=== PATIENT | female | born 1970 | race African-American/Black ===

== ENCOUNTER 2016-11-17 14:22 | Emergency (ER) | payer MEDICAID ==
[~2016-11-17] VITALS: Ht 160 cm; Wt 99.0 kg
[~2016-11-17 14:22] MED LIST: AMLO5TAB88
[2016-11-17 14:34] VITALS: BP 131/87
== END 2016-11-17 18:58 | disposition home or self-care (01) ==
LOC: ER 18:53
DX: M25.562 Pain in left knee (principal); F14.10 Cocaine abuse, uncomplicated; Z98.890 Other specified postprocedural states
CPT/HCPCS: 99281

== ENCOUNTER 2020-05-10 08:33 | Emergency (ER) | payer MEDICAID ==
[~2020-05-10] VITALS: Ht 160 cm; Wt 113.0 kg
[2020-05-10] MEDS ORDERED: KETOROLAC 30MG/ML VIAL IV STA (09:13)
[2020-05-10 09:28] LABS: BASOPHILS % 0.9 % (0.0-2.0); EOSINOPHILS % 2.2 % (0.0-5.0); HEMATOCRIT. 36.5 % (36.0-48.0); HEMOGLOBIN. 12.3 g/dL (12.0-16.0); LYMPHOCYTES % 36.9 % (20.0-50.0); MEAN CORPUSCULAR HEMOGLOBIN 28.7 pg (28.0-32.0); MEAN CORPUSCULAR VOLUME 85.3 fL (81.0-99.0); MEAN PLATELET VOLUME 7.1 fl (7.4-10.4); MONOCYTES % 5.4 % (2.0-8.0); NEUTROPHILS % 54.6 % (40.0-76.0); PLATELET 329 x1000/uL (130-400); RED BLOOD CELL COUNT 4.28 mill/uL (4.2-5.4); RED CELL DISTRIBUTION WIDTH 14.1 % (11.6-14.6)
[2020-05-10 09:31] LABS: CHLORIDE 107 mEq/L (98-107)
[2020-05-10 09:35] LABS: INR 0.9
[2020-05-10] MEDS ORDERED: MORPHINE SULFATE 4 MG/ML CPJ (NOT FOR IM USE) IV ONE (10:30)
[2020-05-10 10:39] LABS: CLARITY URINE CLEAR (CLEAR); COLOR URINE YELLOW (YELLOW); KETONES URINE NEGATIVE (NEGATIVE); LEUKOCYTE ESTERASE URINE TRACE (NEGATIVE); NITRITE URINE NEGATIVE (NEGATIVE); OCCULT BLOOD URINE 3+ (NEGATIVE); PROTEIN URINE NEGATIVE (NEGATIVE); UROBILINOGEN URINE 0.2 E.U./dL (0.2-1.0)
[2020-05-10 11:16] VITALS: BP 149/103
== END 2020-05-10 12:35 | disposition home or self-care (01) ==
LOC: ER 08:33
DX: M54.9 Dorsalgia, unspecified (principal); Z88.6 Allergy status to analgesic agent; Z98.890 Other specified postprocedural states
CPT/HCPCS: 36415; 72100; 80053; 81003; 83690; 85025; 85610; 93005; 96374; 96375; 99285; J1885; J2270

== ENCOUNTER 2021-04-16 11:52 | Inpatient (IN) | payer BC, MEDICAID ==
[~2021-04-16] VITALS: Ht 160 cm; Wt 105.9 kg
[2021-04-16] MEDS ORDERED: ACETAMINOPHEN 325MG TABLET PO ONE (12:45)
[2021-04-16] MEDS ORDERED: SODIUM CHLORIDE 0.9% 1,000 ML IV ONE (12:45)
[2021-04-16] MEDS ORDERED: MECLIZINE 25MG TABLET PO ONE (12:45)
[2021-04-16 13:25] LABS: BASOPHILS % 0.9 % (0.0-2.0); EOSINOPHILS % 0.8 % (0.0-5.0); HEMATOCRIT. 36.7 % (36.0-48.0); HEMOGLOBIN. 12.9 g/dL (12.0-16.0); MEAN CORPUSCULAR HEMOGLOBIN 29.7 pg (28.0-32.0); MEAN CORPUSCULAR VOLUME 84.7 fL (81.0-99.0); MEAN PLATELET VOLUME 7.2 fl (7.4-10.4); MONOCYTES % 5.4 % (2.0-8.0); NEUTROPHILS % 67.9 % (40.0-76.0); PLATELET 332 x1000/uL (130-400); RED BLOOD CELL COUNT 4.33 mill/uL (4.2-5.4); RED CELL DISTRIBUTION WIDTH 14.4 % (11.6-14.6)
[2021-04-16 13:32] LABS: CHLORIDE 105 mEq/L (98-107)
[2021-04-16 13:36] LABS: ETHANOL BLOOD < 10 mg/dL
[2021-04-16 13:48] LABS: *AMPHETAMINES SCREEN URINE NEGATIVE (NEGATIVE); *BARBITURATES SCREEN URINE NEGATIVE (NEGATIVE); *BENZODIAZEPINES SCREEN URINE NEGATIVE (NEGATIVE); *COCAINE SCREEN URINE NEGATIVE (NEGATIVE); CANNABINOID URINE SCREEN NEGATIVE (NEGATIVE); METHADONE URINE SCREEN NEGATIVE (NEGATIVE); OPIATES URINE SCREEN NEGATIVE (NEGATIVE); PHENCYCLIDINE URINE SCREEN NEGATIVE (NEGATIVE)
[2021-04-16] MEDS ORDERED: LORAZEPAM 2MG/ML CPJ IV ONE (15:15)
[2021-04-16] MEDS ORDERED: IOHEXOL-350 100 ML BOTTLE ONE (23:07)
[2021-04-17] MEDS ORDERED: MECLIZINE 25MG TABLET PO PRN (09:30)
[2021-04-17] MEDS ORDERED: ONDANSETRON HCL 4MG/2ML INJ IV PRN (09:30)
[2021-04-17 10:09] LABS: CLARITY URINE CLOUDY (CLEAR); COLOR URINE YELLOW (YELLOW); KETONES URINE NEGATIVE (NEGATIVE); LEUKOCYTE ESTERASE URINE NEGATIVE (NEGATIVE); NITRITE URINE NEGATIVE (NEGATIVE); OCCULT BLOOD URINE NEGATIVE (NEGATIVE); PH URINE 7.5 (4.5-8.0); PROTEIN URINE NEGATIVE (NEGATIVE); SPECIFIC GRAVITY URINE 1.017 (1.005-1.030)
[2021-04-17 12:00] VITALS: BP_SYST 130; BP_SYST 139; BP_DIAS 87; BP_DIAS 88
[2021-04-17] MEDS: ACETAMINOPHEN 325MG TABLET PO PRN (13:22)
[2021-04-17 15:24] VITALS: BP 139/88
[2021-04-17 16:00] VITALS: BP 128/83
[2021-04-17] MEDS ORDERED: IBUP-2029 MT (16:52)
[2021-04-17] MEDS ORDERED: METO-396 PO (16:53)
[2021-04-17] MEDS ORDERED: FAMO20VI IV (16:56)
[2021-04-17] MEDS ORDERED: METF500S7 PO (16:59)
[2021-04-17] MEDS ORDERED: ATOR20TA65 PO (17:01)
[2021-04-17] MEDS ORDERED: LOSA25TA26 PO (17:02)
[2021-04-17] MEDS ORDERED: MELO-106 PO (17:10)
[2021-04-17 20:00] VITALS: BP_SYST 120; BP_SYST 121; BP_SYST 139; BP_DIAS 71; BP_DIAS 75; BP_DIAS 89
[2021-04-17] MEDS ORDERED: DEXTROSE 50% WATER 50ML SYRINGE IV PRN (21:15)
[2021-04-17] MEDS: BLOOD SUGAR DIAGNOSTIC STRIP TEST SCH (21:27)
[2021-04-17] MEDS: ATORVASTATIN CALCIUM 40MG TABLET PO SCH (21:27)
[2021-04-17] MEDS: METOPROLOL TARTRATE 25MG TABLET PO SCH (21:28)
[2021-04-18] VITALS (8 sets, daily range): BP systolic 98–147; BP diastolic 55–93
[2021-04-18] MEDS: BLOOD SUGAR DIAGNOSTIC STRIP TEST SCH ×4 (06:35→21:35)
[2021-04-18] MEDS: INSULIN LISPRO 100 UNITS/ML SUBCUT SCH ×4 (07:50→21:00)
[2021-04-18] MEDS ORDERED: FAMOTIDINE 20MG TABLET PO SCH (09:00)
[2021-04-18] MEDS: METFORMIN HCL 500MG TABLET PO SCH ×2 (09:01→17:32)
[2021-04-18] MEDS: LOSARTAN POTASSIUM 25 MG TABLET PO SCH (09:02)
[2021-04-18] MEDS: METOPROLOL TARTRATE 25MG TABLET PO SCH ×2 (09:03→21:34)
[2021-04-18] MEDS: ACETAMINOPHEN 325MG TABLET PO PRN ×2 (09:05→21:40)
[2021-04-18] MEDS: ATORVASTATIN CALCIUM 40MG TABLET PO SCH (21:34)
[2021-04-18] MEDS: FAMOTIDINE 20MG TABLET PO SCH (21:34)
[2021-04-18] MEDS ORDERED: NALOXONE HCL 0.4MG/ML VIAL IV PRN (22:00)
[2021-04-18] MEDS ORDERED: MORPHINE SULFATE 2 MG/ML CPJ (NOT FOR IM USE) IV PRN (22:00)
[2021-04-19] VITALS: BP 99/57
[2021-04-19 04:00] VITALS: BP 91/49
[2021-04-19] MEDS: BLOOD SUGAR DIAGNOSTIC STRIP TEST SCH (06:50)
[2021-04-19] MEDS: INSULIN LISPRO 100 UNITS/ML SUBCUT SCH (07:50)
[2021-04-19 08:00] VITALS: BP 111/59
[2021-04-19] MEDS: METFORMIN HCL 500MG TABLET PO SCH (08:59)
[2021-04-19] MEDS: METOPROLOL TARTRATE 25MG TABLET PO SCH (08:59)
[2021-04-19] MEDS: FAMOTIDINE 20MG TABLET PO SCH (09:00)
[2021-04-19] MEDS: LOSARTAN POTASSIUM 25 MG TABLET PO SCH (09:00)
[2021-04-19] MEDS ORDERED: MECL-159 MT (10:11)
== END 2021-04-19 13:10 | disposition home or self-care (01) | DRG 48 ==
LOC: ER 11:52 → 6WST 04-17 09:12 → EDBEDREQTM 04-17 09:58 → EDBEDREQ 04-17 09:58 → ENRESERV 04-17 10:22
PROVIDERS: ADMIT Internal Medicine; ATTEND Internal Medicine
DX: G90.8 Other disorders of autonomic nervous system (principal); E44.1 Mild protein-calorie malnutrition; E11.9 Type 2 diabetes mellitus without complications; E78.5 Hyperlipidemia, unspecified; E78.00 Pure hypercholesterolemia, unspecified; E66.9 Obesity, unspecified; I10 Essential (primary) hypertension; Z98.891 History of uterine scar from previous surgery; Z68.41 Body mass index [BMI] 40.0-44.9, adult; Z88.5 Allergy status to narcotic agent; Z71.3 Dietary counseling and surveillance
CPT/HCPCS: 36415; 70496; 70498; 71045; 80053; 80305; 80320; 81003; 82962; 83036; 83880; 84443; 84484; 85025; 93005; 93306; 99285; J2060; J2270; J2405; J7030; J8597; Q9967; G0480

== ENCOUNTER 2021-09-11 07:48 | Emergency (ER) | payer MEDICAID ==
[~2021-09-11] VITALS: Ht 160 cm; Wt 100.0 kg
[~2021-09-11 07:48] MED LIST changes: -AMLO5TAB88; +ATOR20TA65 PO; +FAMO20VI IV; +IBUP-2029 MT; +LOSA25TA26 PO; +MECL-159 MT; +MELO-106 PO; +METF500S7 PO; +METO-396 PO
[2021-09-11 08:05] VITALS: BP 145/90
[2021-09-11] MEDS ORDERED: KETOROLAC 30MG/ML VIAL IV STA (08:16)
[2021-09-11] MEDS ORDERED: ONDANSETRON HCL 4MG/2ML INJ IV STA (08:16)
[2021-09-11 08:37] LABS: BASOPHILS % 0.6 % (0.0-2.0); EOSINOPHILS % 0.7 % (0.0-5.0); HEMATOCRIT. 36.6 % (36.0-48.0); HEMOGLOBIN. 12.3 g/dL (12.0-16.0); LYMPHOCYTES % 33.9 % (20.0-50.0); MEAN CORPUSCULAR HEMOGLOBIN 28.6 pg (28.0-32.0); MEAN CORPUSCULAR VOLUME 85.3 fL (81.0-99.0); MEAN PLATELET VOLUME 7.2 fl (7.4-10.4); MONOCYTES % 6.2 % (2.0-8.0); NEUTROPHILS % 58.6 % (40.0-76.0); PLATELET 344 x1000/uL (130-400); RED BLOOD CELL COUNT 4.29 mill/uL (4.2-5.4); RED CELL DISTRIBUTION WIDTH 13.5 % (11.6-14.6)
[2021-09-11 08:40] LABS: CHLORIDE 107 mEq/L (98-107)
[2021-09-11 09:12] LABS: CLARITY URINE CLEAR (CLEAR); COLOR URINE YELLOW (YELLOW); KETONES URINE NEGATIVE (NEGATIVE); LEUKOCYTE ESTERASE URINE 1+ (NEGATIVE); NITRITE URINE NEGATIVE (NEGATIVE); OCCULT BLOOD URINE 3+ (NEGATIVE); PH URINE 6.5 (4.5-8.0); PROTEIN URINE TRACE (NEGATIVE); SPECIFIC GRAVITY URINE 1.024 (1.005-1.030); UROBILINOGEN URINE 0.2 E.U./dL (0.2-1.0)
[2021-09-11] MEDS ORDERED: NITR100C PO (09:53)
[2021-09-11] MEDS ORDERED: TOPUD PO (09:53)
== END 2021-09-11 10:22 | disposition home or self-care (01) ==
LOC: ER 07:48
DX: N39.0 Urinary tract infection, site not specified (principal); E11.9 Type 2 diabetes mellitus without complications; I10 Essential (primary) hypertension; E78.00 Pure hypercholesterolemia, unspecified; Z88.5 Allergy status to narcotic agent; Z79.899 Other long term (current) drug therapy; Z98.890 Other specified postprocedural states
CPT/HCPCS: 36415; 80053; 81003; 83690; 85025; 93005; 96374; 96375; 99284; J1885; J2405

== ENCOUNTER 2021-10-12 07:53 | Emergency (ER) | payer MEDICAID ==
[~2021-10-12] VITALS: Ht 162.6 cm; Wt 120.0 kg
[~2021-10-12 07:53] MED LIST changes: +NITR100C PO; +TOPUD PO
[2021-10-12] MEDS ORDERED: IBUPROFEN 600MG TABLET PO STA (08:09)
[2021-10-12] MEDS ORDERED: KETOROLAC 60MG/2ML VIAL IM ONE (09:30)
[2021-10-12] MEDS ORDERED: IBUP-2029 MT (09:51)
[2021-10-12] MEDS ORDERED: CYCL10TA7 MT (09:51)
[2021-10-12 10:21] VITALS: BP 126/89
== END 2021-10-12 10:25 | disposition home or self-care (01) ==
LOC: ER 08:07
DX: S20.219A Contusion of unspecified front wall of thorax, initial encounter (principal); S30.1XXA Contusion of abdominal wall, initial encounter; E11.9 Type 2 diabetes mellitus without complications; E78.00 Pure hypercholesterolemia, unspecified; I10 Essential (primary) hypertension; Z88.5 Allergy status to narcotic agent; Z79.899 Other long term (current) drug therapy; Z98.890 Other specified postprocedural states; V49.40XA Driver injured in collision with unspecified motor vehicles in traffic accident, initial encounter; Y93.89 Activity, other specified; Y92.89 Other specified places as the place of occurrence of the external cause; Y99.8 Other external cause status
CPT/HCPCS: 71045; 74018; 93005; 96372; 99284; J1885

== ENCOUNTER 2022-08-14 12:47 | Emergency (ER) | payer MEDICAID ==
[~2022-08-14] VITALS: Ht 160 cm; Wt 105.0 kg
[~2022-08-14 12:47] MED LIST changes: +CYCL10TA21 MT; -METF500S7 PO; +METF500S9 PO
[2022-08-14 12:54] VITALS: BP 150/98
[2022-08-14] MEDS ORDERED: ACETAMINOPHEN 325MG TABLET PO STA (13:58)
[2022-08-14 15:59] LABS: CLARITY URINE CLEAR (CLEAR); COLOR URINE YELLOW (YELLOW); KETONES URINE NEGATIVE (NEGATIVE); LEUKOCYTE ESTERASE URINE NEGATIVE (NEGATIVE); NITRITE URINE NEGATIVE (NEGATIVE); OCCULT BLOOD URINE NEGATIVE (NEGATIVE); PH URINE 7.5 (4.5-8.0); PROTEIN URINE NEGATIVE (NEGATIVE); SPECIFIC GRAVITY URINE 1.008 (1.005-1.030)
[2022-08-14] MEDS ORDERED: ALBU18HF2 IH (16:54)
[2022-08-14] MEDS ORDERED: NAPR-681 PO (16:54)
[2022-08-14] MEDS ORDERED: D-ME473S50 PO (16:54)
== END 2022-08-14 18:01 | disposition home or self-care (01) ==
LOC: ER 12:47
DX: J20.9 Acute bronchitis, unspecified (principal); E11.9 Type 2 diabetes mellitus without complications; E78.00 Pure hypercholesterolemia, unspecified; I10 Essential (primary) hypertension; Z88.6 Allergy status to analgesic agent; Z20.822 Contact with and (suspected) exposure to COVID-19; Z98.890 Other specified postprocedural states
CPT/HCPCS: 71045; 81003; 87426; 87804; 93005; 99285

== ENCOUNTER 2022-09-30 20:56 | Emergency (ER) | payer MEDICAID ==
[~2022-09-30] VITALS: Ht 160 cm; Wt 104.8 kg
[~2022-09-30 20:56] MED LIST changes: +ALBU18HF2 IH; +D-ME473S50 PO; +NAPR-681 PO
[2022-09-30 22:00] VITALS: BP 136/78
[2022-09-30 22:53] LABS: BASOPHILS % 0.3 % (0.0-2.0); EOSINOPHILS % 0.9 % (0.0-5.0); HEMATOCRIT. 36.5 % (36.0-48.0); HEMOGLOBIN. 12.1 g/dL (12.0-16.0); LYMPHOCYTES % 11.8 % (20.0-50.0); MEAN CORPUSCULAR HEMOGLOBIN 28.8 pg (28.0-32.0); MEAN CORPUSCULAR VOLUME 86.8 fL (81.0-99.0); MEAN PLATELET VOLUME 6.9 fl (7.4-10.4); MONOCYTES % 5.6 % (2.0-8.0); NEUTROPHILS % 81.4 % (40.0-76.0); PLATELET 294 x1000/uL (130-400); RED BLOOD CELL COUNT 4.21 mill/uL (4.2-5.4); RED CELL DISTRIBUTION WIDTH 13.9 % (11.6-14.6)
[2022-09-30 23:05] LABS: CHLORIDE 106 mEq/L (98-107)
[2022-09-30 23:30] LABS: CLARITY URINE CLOUDY (CLEAR); COLOR URINE YELLOW (YELLOW); KETONES URINE TRACE (NEGATIVE); LEUKOCYTE ESTERASE URINE TRACE (NEGATIVE); NITRITE URINE NEGATIVE (NEGATIVE); OCCULT BLOOD URINE NEGATIVE (NEGATIVE); PH URINE 6.5 (4.5-8.0); PROTEIN URINE NEGATIVE (NEGATIVE); SPECIFIC GRAVITY URINE 1.023 (1.005-1.030)
[2022-10-01] MEDS ORDERED: MAGNESIUM/ALUMINUM HYDROXIDE/SIMETHICONE 30ML UDC PO ONE (02:00)
[2022-10-01] MEDS ORDERED: ONDANSETRON 4MG ODT PO ONE (02:00)
[2022-10-01] MEDS ORDERED: ONDA4TAB50 MT (03:48)
== END 2022-10-01 04:48 | disposition home or self-care (01) ==
LOC: ER 20:56
DX: A05.9 Bacterial foodborne intoxication, unspecified (principal); R10.84 Generalized abdominal pain; R11.2 Nausea with vomiting, unspecified; E11.9 Type 2 diabetes mellitus without complications; E78.00 Pure hypercholesterolemia, unspecified; I10 Essential (primary) hypertension; Z98.890 Other specified postprocedural states; Z79.899 Other long term (current) drug therapy
CPT/HCPCS: 36415; 80053; 81003; 81025; 82962; 83690; 85025; 99283; Q0162

== ENCOUNTER 2022-12-13 19:58 | Emergency (ER) | payer MEDICAID ==
[~2022-12-13] VITALS: Ht 160 cm; Wt 107.7 kg
[~2022-12-13 19:58] MED LIST changes: +ONDA4TAB50 MT
[2022-12-13 20:19] VITALS: BP 135/97
[2022-12-13 20:51] LABS: BASOPHILS % 0.6 % (0.0-2.0); EOSINOPHILS % 1.6 % (0.0-5.0); HEMATOCRIT. 34.2 % (36.0-48.0); HEMOGLOBIN. 11.5 g/dL (12.0-16.0); LYMPHOCYTES % 32.6 % (20.0-50.0); MEAN CORPUSCULAR HEMOGLOBIN 29.2 pg (28.0-32.0); MEAN CORPUSCULAR VOLUME 86.8 fL (81.0-99.0); MEAN PLATELET VOLUME 7.4 fl (7.4-10.4); MONOCYTES % 5.7 % (2.0-8.0); NEUTROPHILS % 59.5 % (40.0-76.0); PLATELET 283 x1000/uL (130-400); RED BLOOD CELL COUNT 3.95 mill/uL (4.2-5.4); RED CELL DISTRIBUTION WIDTH 13.8 % (11.6-14.6)
[2022-12-13 21:00] LABS: CHLORIDE 109 mEq/L (98-107)
[2022-12-13 22:32] LABS: CLARITY URINE CLEAR (CLEAR); COLOR URINE YELLOW (YELLOW); KETONES URINE NEGATIVE (NEGATIVE); LEUKOCYTE ESTERASE URINE TRACE (NEGATIVE); NITRITE URINE NEGATIVE (NEGATIVE); OCCULT BLOOD URINE 3+ (NEGATIVE); PROTEIN URINE NEGATIVE (NEGATIVE); SPECIFIC GRAVITY URINE 1.023 (1.005-1.030)
[2022-12-13] MEDS ORDERED: NITR-87 MT (23:16)
== END 2022-12-13 23:51 | disposition home or self-care (01) ==
LOC: ER 19:58
DX: R07.89 Other chest pain (principal); E11.9 Type 2 diabetes mellitus without complications; E78.00 Pure hypercholesterolemia, unspecified; I10 Essential (primary) hypertension
CPT/HCPCS: 36415; 71045; 80053; 81003; 84484; 85025; 93005; 99285

== ENCOUNTER 2023-03-14 17:03 | Emergency (ER) | payer MEDICAID ==
[~2023-03-14] VITALS: Ht 160 cm; Wt 105.0 kg
[~2023-03-14 17:03] MED LIST changes: +NITR-87 MT
[2023-03-14 17:29] VITALS: O2SAT 95
[2023-03-14 18:09] LABS: BASOPHILS % 0.5 % (0.0-2.0); EOSINOPHILS % 0.2 % (0.0-5.0); HEMATOCRIT. 34.1 % (36.0-48.0); HEMOGLOBIN. 11.7 g/dL (12.0-16.0); LYMPHOCYTES % 23.5 % (20.0-50.0); MEAN CORPUSCULAR HEMOGLOBIN 29.4 pg (28.0-32.0); MEAN CORPUSCULAR HGB CONC 34.2 g/dL (31.0-37.0); MEAN CORPUSCULAR VOLUME 85.9 fL (81.0-99.0); MEAN PLATELET VOLUME 7.1 fl (7.4-10.4); MONOCYTES % 13.6 % (2.0-8.0); NEUTROPHILS % 62.2 % (40.0-76.0); PLATELET 257 x1000/uL (130-400); RED BLOOD CELL COUNT 3.97 mill/uL (4.2-5.4); RED CELL DISTRIBUTION WIDTH 13.8 % (11.6-14.6); WHITE BLOOD COUNT 4.7 x1000/uL (4.5-11.0)
[2023-03-14 18:21] LABS: CHLORIDE 103 mEq/L (98-107); INDEX HEMOLYSI 1 (1-3); INDEX ICTERIC 1 (1-4); INDEX LIPEMIC 1 (1-3); POTASSIUM 3.4 mEq/L (3.5-5.1); SODIUM 135 mEq/L (136-145)
[2023-03-14 18:40] LABS: ALANINE AMINOTRANSFERASE 17 IU/L (13-61); ASPARTATE AMINOTRANSFERASE 15 IU/L (15-37); BILIRUBIN TOTAL 0.7 mg/dL (0.1-1.0); CALCIUM 7.5 mg/dL (8.5-10.1); CARBON DIOXIDE 26 mEq/L (21-32); GLUCOSE 114 mg/dL (70-105); PROTEIN TOTAL 7.4 g/dL (6.0-8.3); UREA NITROGEN BLOOD 10 mg/dL (7-21)
[2023-03-14 18:56] LABS: TROPONIN I HIGH SENSITIVITY < 4 ng/L (<54)
[2023-03-14 21:24] LABS: CLARITY URINE CLEAR (CLEAR); COLOR URINE YELLOW (YELLOW); GLUCOSE URINE NEGATIVE (NEGATIVE); KETONES URINE NEGATIVE (NEGATIVE); LEUKOCYTE ESTERASE URINE NEGATIVE (NEGATIVE); NITRITE URINE NEGATIVE (NEGATIVE); OCCULT BLOOD URINE NEGATIVE (NEGATIVE); PH URINE 5.5 (4.5-8.0); PROTEIN URINE NEGATIVE (NEGATIVE); SPECIFIC GRAVITY URINE 1.007 (1.005-1.030); UROBILINOGEN URINE 0.2 E.U./dL (0.2-1.0)
[2023-03-14] MEDS ORDERED: POTASSIUM CHLORIDE 20MEQ TABLET SR PO ONE (22:00)
[2023-03-14 22:46] VITALS: BP 101/69; PULSE 89; RESP 16; TEMP 98.1
== END 2023-03-14 22:49 | disposition home or self-care (01) ==
LOC: ER 17:03
DX: R42 Dizziness and giddiness (principal); R53.81 Other malaise; R51.9 Headache, unspecified; E11.9 Type 2 diabetes mellitus without complications; E78.00 Pure hypercholesterolemia, unspecified; I10 Essential (primary) hypertension; Z98.890 Other specified postprocedural states; Z79.899 Other long term (current) drug therapy
CPT/HCPCS: 36415; 71045; 80053; 81003; 81025; 84484; 85025; 93005; 99285

== ENCOUNTER 2023-06-03 14:55 | Emergency (ER) | payer MEDICAID, OTHER ==
[~2023-06-03] VITALS: Ht 177.8 cm; Wt 96.0 kg
[~2023-06-03 14:55] MED LIST changes: +BECL10.6 PO; -CYCL10TA21 MT; -D-ME473S50 PO; +DOCU-150 PO; -FAMO20VI IV; +FLUT16SP15 NS; -IBUP-2029 MT; -MECL-159 MT; -MELO-106 PO; +METF-414 PO; -METF500S9 PO; -NAPR-681 PO; -NITR-87 MT; -NITR100C PO; -ONDA4TAB50 MT; +TRAM50TA3 PO
[2023-06-03 14:58] VITALS: O2SAT 98
[2023-06-03] MEDS ORDERED: DIPHENHYDRAMINE 25MG CAPSULE PO ONE (15:00)
[2023-06-03] MEDS ORDERED: IBUPROFEN 600MG TABLET PO ONE (15:00)
[2023-06-03] MEDS ORDERED: METOCLOPRAMIDE HCL 10MG TABLET PO ONE (15:00)
[2023-06-03 15:34] LABS: BASOPHILS % 0.6 % (0.0-2.0); EOSINOPHILS % 1.1 % (0.0-5.0); HEMATOCRIT. 39.5 % (36.0-48.0); HEMOGLOBIN. 13.1 g/dL (12.0-16.0); LYMPHOCYTES % 26.8 % (20.0-50.0); MEAN CORPUSCULAR HEMOGLOBIN 28.8 pg (28.0-32.0); MEAN CORPUSCULAR HGB CONC 33.1 g/dL (31.0-37.0); MEAN PLATELET VOLUME 7.3 fl (7.4-10.4); MONOCYTES % 5.2 % (2.0-8.0); NEUTROPHILS % 66.3 % (40.0-76.0); PLATELET 340 x1000/uL (130-400); RED BLOOD CELL COUNT 4.54 mill/uL (4.2-5.4); RED CELL DISTRIBUTION WIDTH 13.6 % (11.6-14.6); WHITE BLOOD COUNT 6.3 x1000/uL (4.5-11.0)
[2023-06-03 15:59] LABS: HCG SCREEN NEGATIVE
[2023-06-03 17:54] LABS: ALANINE AMINOTRANSFERASE 37 IU/L (10-49); ASPARTATE AMINOTRANSFERASE 44 IU/L (<34); BILIRUBIN TOTAL 0.3 mg/dL (0.1-1.0); CALCIUM 9.2 mg/dL (8.7-10.4); CARBON DIOXIDE 25 mEq/L (21-32); CHLORIDE 101 mEq/L (98-107); GLUCOSE 178 mg/dL (70-105); POTASSIUM 4.2 mEq/L (3.5-5.1); PROTEIN TOTAL 7.5 g/dL (6.0-8.3); SODIUM 138 mEq/L (136-145); UREA NITROGEN BLOOD 7 mg/dL (9-23)
[2023-06-03] MEDS ORDERED: IBUP-2029 MT (18:26)
[2023-06-03 18:37] VITALS: BP 131/73; PULSE 73; RESP 20; TEMP 98.4
== END 2023-06-03 19:20 | disposition home or self-care (01) ==
LOC: ER 14:55
DX: G43.909 Migraine, unspecified, not intractable, without status migrainosus (principal); E11.9 Type 2 diabetes mellitus without complications; E78.00 Pure hypercholesterolemia, unspecified; I10 Essential (primary) hypertension; Z98.890 Other specified postprocedural states; Z88.5 Allergy status to narcotic agent
CPT/HCPCS: 99284; 80053; 84703; 85025; 36415; Q0163; J8597

== ENCOUNTER 2024-01-24 22:55 | Emergency (ER) | payer MEDICAID ==
[~2024-01-24] VITALS: Ht 170.2 cm; Wt 109.0 kg
[~2024-01-24 22:55] MED LIST changes: +IBUP-2029 MT
[2024-01-24 23:13] VITALS: TEMP 98.7; O2SAT 98
[2024-01-25 00:19] LABS: BASOPHILS % 0.3 % (0.0-2.0); EOSINOPHILS % 1.8 % (0.0-5.0); HEMATOCRIT. 36.1 % (36.0-48.0); HEMOGLOBIN. 12.1 g/dL (12.0-16.0); LYMPHOCYTES % 32.5 % (20.0-50.0); MEAN CORPUSCULAR HEMOGLOBIN 29.8 pg (28.0-32.0); MEAN CORPUSCULAR HGB CONC 33.4 g/dL (31.0-37.0); MEAN CORPUSCULAR VOLUME 89.1 fL (81.0-99.0); MEAN PLATELET VOLUME 7.1 fl (7.4-10.4); MONOCYTES % 5.8 % (2.0-8.0); NEUTROPHILS % 59.6 % (40.0-76.0); PLATELET 347 x1000/uL (130-400); RED BLOOD CELL COUNT 4.05 mill/uL (4.2-5.4); RED CELL DISTRIBUTION WIDTH 14.1 % (11.6-14.6); WHITE BLOOD COUNT 7.1 x1000/uL (4.5-11.0)
[2024-01-25 00:25] LABS: CHLORIDE 103 mEq/L (98-107); POTASSIUM 3.7 mEq/L (3.5-5.1); SODIUM 136 mEq/L (136-145)
[2024-01-25 00:26] LABS: CARBON DIOXIDE 27 mEq/L (21-32)
[2024-01-25 00:27] LABS: CALCIUM 8.6 mg/dL (8.7-10.4)
[2024-01-25 00:31] LABS: CREATININE 0.9 mg/dL (0.6-1.0); GLUCOSE 122 mg/dL (70-105); UREA NITROGEN BLOOD 11 mg/dL (9-23)
[2024-01-25 00:58] LABS: TROPONIN I HIGH SENSITIVITY < 4 ng/L (3.0-34)
[2024-01-25] MEDS: KETOROLAC 15MG/ML VIAL IM ONE (01:52)
[2024-01-25 01:54] VITALS: BP 148/99; PULSE 86; RESP 16
== END 2024-01-25 01:58 | disposition home or self-care (01) ==
LOC: ER 22:55
DX: R07.89 Other chest pain (principal); R06.02 Shortness of breath; E11.9 Type 2 diabetes mellitus without complications; E78.00 Pure hypercholesterolemia, unspecified; I10 Essential (primary) hypertension; Z79.899 Other long term (current) drug therapy
CPT/HCPCS: 99284; 71045; 80048; 83880; 85025; 84484; 36415; 93005; 96372; J1885

== ENCOUNTER 2024-06-03 13:53 | Emergency (ER) | payer MEDICAID ==
[~2024-06-03] VITALS: Ht 167.6 cm; Wt 106.0 kg
[~2024-06-03 13:53] MED LIST changes: -DOCU-150 PO; +DOCU-422 PO; -IBUP-2029 MT
[2024-06-03 14:06] VITALS: TEMP 98.4; O2SAT 98
[2024-06-03 15:45] LABS: BASOPHILS % 0.5 % (0.0-2.0); HEMATOCRIT. 35.9 % (36.0-48.0); HEMOGLOBIN. 11.8 g/dL (12.0-16.0); LYMPHOCYTES % 22.3 % (20.0-50.0); MEAN CORPUSCULAR HGB CONC 32.8 g/dL (31.0-37.0); MEAN CORPUSCULAR VOLUME 88.4 fL (81.0-99.0); MEAN PLATELET VOLUME 7.5 fl (7.4-10.4); MONOCYTES % 4.9 % (2.0-8.0); NEUTROPHILS % 70.3 % (40.0-76.0); PLATELET 303 x1000/uL (130-400); RED BLOOD CELL COUNT 4.06 mill/uL (4.2-5.4); RED CELL DISTRIBUTION WIDTH 13.9 % (11.6-14.6); WHITE BLOOD COUNT 6.1 x1000/uL (4.5-11.0)
[2024-06-03 15:50] LABS: CHLORIDE 102 mEq/L (98-107); POTASSIUM 4.1 mEq/L (3.5-5.1); SODIUM 139 mEq/L (136-145)
[2024-06-03 15:51] LABS: CARBON DIOXIDE 32 mEq/L (21-32)
[2024-06-03 15:52] LABS: CALCIUM 9.4 mg/dL (8.7-10.4)
[2024-06-03 15:54] LABS: D-DIMER 0.33 mg/L FEU (<0.50); INR 0.9; PARTIAL THROMBOPLASTIN TIME 25.6 sec (23.4-31.0); PROTHROMBIN TIME 10.5 sec (9.6-11.0)
[2024-06-03 15:57] LABS: GLUCOSE 170 mg/dL (70-105); UREA NITROGEN BLOOD 7 mg/dL (9-23)
[2024-06-03 16:01] LABS: TROPONIN I HIGH SENSITIVITY < 4 ng/L (3.0-34)
[2024-06-03] MEDS ORDERED: IPRATROPIUM/ALBUTEROL 0.5-3(2.5)MG/3ML NEB NEB PRN (17:45)
[2024-06-03] MEDS ORDERED: GUAIFENESIN 200MG/10ML SUGAR FREE UDC PO PRN (17:45)
[2024-06-03] MEDS ORDERED: CLONIDINE 0.1MG TABLET PO PRN (17:45)
[2024-06-03] MEDS ORDERED: ONDANSETRON HCL 4MG/2ML INJ IV PRN (17:45)
[2024-06-03] MEDS ORDERED: DOCUSATE SODIUM 100MG CAPSULE PO PRN (17:45)
[2024-06-03] MEDS ORDERED: ACETAMINOPHEN 325MG TABLET PO PRN ×2 (17:45)
[2024-06-03] MEDS ORDERED: ZOLPIDEM TARTRATE 5MG TABLET PO PRN (17:45)
[2024-06-03] MEDS ORDERED: NITROGLYCERIN 0.4MG TABLET SL SL PRN (17:45)
[2024-06-03] MEDS ORDERED: MAGNESIUM/ALUMINUM HYDROXIDE/SIMETHICONE 30ML UDC PO PRN (17:45)
[2024-06-03] MEDS: KETOROLAC 15MG/ML VIAL IV PRN (18:36)
[2024-06-03] MEDS: ENOXAPARIN 40MG/0.4ML SYR SUBCUT SCH (18:36)
[2024-06-03 18:53] LABS: IRON 55 ug/dL (50-170)
[2024-06-03 18:54] LABS: LDL CHOLESTEROL 93 mg/dL (5-100); TRIGLYCERIDE 137 mg/dL (0-150)
[2024-06-03 18:55] LABS: HDL CHOLESTEROL 36 mg/dL (>65)
[2024-06-03 18:56] LABS: CHOLESTEROL 147 mg/dL (<200); TOTAL IRON BINDING CAPACITY 404 ug/dl (250-425)
[2024-06-03 18:59] LABS: FOLIC ACID (FOLATE) SERUM 14.23 ng/mL (>5.38); VITAMIN B12 SERUM 480 pg/mL (211-911)
[2024-06-03 19:00] LABS: T4 FREE 1.35 ng/dL (0.89-1.76); THYROID STIMULATING HORMONE 1.11 uIU/mL (0.55-4.78)
[2024-06-03 19:38] VITALS: BP 129/88; PULSE 104; RESP 23; O2SAT 98
[2024-06-03] MEDS ORDERED: ATORVASTATIN CALCIUM 20MG TABLET PO SCH (21:00)
[2024-06-03] MEDS ORDERED: METOPROLOL TARTRATE 25MG TABLET PO SCH (21:00)
[2024-06-03] MEDS ORDERED: FAMOTIDINE 20MG TABLET PO SCH (21:00)
[2024-06-04] MEDS ORDERED: ASPIRIN 325MG EC TABLET PO SCH (09:00)
== END 2024-06-03 19:57 | disposition short-term general hospital (02) ==
LOC: ER 13:53 → EDBEDREQ 17:12 → ER 19:57
DX: R07.89 Other chest pain (principal); E11.9 Type 2 diabetes mellitus without complications; I10 Essential (primary) hypertension; Z79.899 Other long term (current) drug therapy; Z88.5 Allergy status to narcotic agent
CPT/HCPCS: 80061; 80048; 82607; 82746; 83036; 83880; 84439; 83540; 83550; 84443; 85025; 85379; 85610; 85730; 84484; 36415; 71045; 93005; 96372; 96374; 99285; J1650; J1885; Z7610 ×3

== ENCOUNTER 2025-05-13 20:00 | Emergency (ER) | payer MEDICAID ==
[~2025-05-13] VITALS: Ht 170.2 cm; Wt 127.0 kg
[2025-05-13 20:13] VITALS: TEMP 36.9; O2SAT 97
[2025-05-13] MEDS: SODIUM CHLORIDE 0.9% 1,000 ML IV ONE (21:03)
[2025-05-13 21:57] LABS: INR 0.9
[2025-05-13 21:58] LABS: BASOPHILS % 0.7 % (0.0-2.0); EOSINOPHILS % 1.8 % (0.0-5.0); HEMATOCRIT. 35.9 % (36.0-48.0); HEMOGLOBIN. 11.7 g/dL (12.0-16.0); LYMPHOCYTES % 31.6 % (20.0-50.0); MEAN PLATELET VOLUME 7.7 fl (7.4-10.4); MONOCYTES % 4.7 % (2.0-8.0); NEUTROPHILS % 61.2 % (40.0-76.0); PLATELET 293 x1000/uL (130-400); RED BLOOD CELL COUNT 4.14 mill/uL (4.2-5.4); RED CELL DISTRIBUTION WIDTH 14.1 % (11.6-14.6)
[2025-05-13 22:04] LABS: CREATININE 0.9 mg/dL (0.6-1.0)
[2025-05-13 22:05] LABS: UREA NITROGEN BLOOD 12 mg/dL (9-23)
[2025-05-13 22:06] LABS: ASPARTATE AMINOTRANSFERASE 12 IU/L (<34); TROPONIN I HIGH SENSITIVITY < 4 ng/L (3.0-34)
[2025-05-13 22:07] LABS: BILIRUBIN DIRECT 0.1 mg/dL (<=3.0); BILIRUBIN TOTAL 0.4 mg/dL (0.1-1.0); PROTEIN TOTAL 7.5 g/dL (6.0-8.3)
[2025-05-13 22:53] LABS: HCG SCREEN INDETERMINATE
[2025-05-13 23:08] LABS: TROPONIN I HIGH SENSITIVITY < 4 ng/L (3.0-34)
[2025-05-13] MEDS: KETOROLAC 15MG/ML VIAL IV ONE (23:12)
[2025-05-13 23:22] VITALS: BP 123/73; PULSE 96; RESP 15; O2SAT 97
== END 2025-05-13 23:45 | disposition home or self-care (01) ==
LOC: ER 20:00
DX: M94.0 Chondrocostal junction syndrome [Tietze] (principal); I10 Essential (primary) hypertension; E11.9 Type 2 diabetes mellitus without complications; F10.90 Alcohol use, unspecified, uncomplicated; Z79.4 Long term (current) use of insulin; Z79.51 Long term (current) use of inhaled steroids; Z79.84 Long term (current) use of oral hypoglycemic drugs; Z79.899 Other long term (current) drug therapy; Z88.5 Allergy status to narcotic agent; Y90.9 Presence of alcohol in blood, level not specified
CPT/HCPCS: 99285; 96374; 71045; 96361; 80076; 80048; 84703; 83880; 83735; 85025; 85379; 85610; 85730; 84484; 36415; 93005; J1885; J7030

== ENCOUNTER 2025-07-02 02:06 | Emergency (ER) | payer MEDICAID ==
[~2025-07-02] VITALS: Ht 160 cm; Wt 95.0 kg
[2025-07-02 02:14] VITALS: O2SAT 100
[2025-07-02 04:04] LABS: CREATININE 0.9 mg/dL (0.6-1.0); UREA NITROGEN BLOOD 9 mg/dL (9-23)
[2025-07-02 04:05] LABS: PROTEIN TOTAL 7.4 g/dL (6.0-8.3)
[2025-07-02 04:06] LABS: ASPARTATE AMINOTRANSFERASE 13 IU/L (<34); TROPONIN I HIGH SENSITIVITY < 4 ng/L (3.0-34)
[2025-07-02 04:07] LABS: BILIRUBIN DIRECT 0.2 mg/dL (<=3.0); BILIRUBIN TOTAL 0.6 mg/dL (0.1-1.0)
[2025-07-02 04:31] LABS: BASOPHILS % 1.0 % (0.0-2.0); EOSINOPHILS % 1.3 % (0.0-5.0); HEMATOCRIT. 35.2 % (36.0-48.0); HEMOGLOBIN. 11.3 g/dL (12.0-16.0); LYMPHOCYTES % 29.1 % (20.0-50.0); MEAN PLATELET VOLUME 7.7 fl (7.4-10.4); MONOCYTES % 6.3 % (2.0-8.0); NEUTROPHILS % 62.3 % (40.0-76.0); PLATELET 307 x1000/uL (130-400); RED BLOOD CELL COUNT 4.10 mill/uL (4.2-5.4); RED CELL DISTRIBUTION WIDTH 14.3 % (11.6-14.6)
[2025-07-02 05:39] LABS: TROPONIN I HIGH SENSITIVITY < 4 ng/L (3.0-34)
[2025-07-02] MEDS ORDERED: ONDANSETRON HCL 4MG/2ML INJ IV PRN (08:15)
[2025-07-02] MEDS ORDERED: ACETAMINOPHEN 650MG/20.3ML UDC GT PRN ×2 (08:15)
[2025-07-02] MEDS ORDERED: CLONIDINE 0.1MG TABLET PO PRN (08:15)
[2025-07-02] MEDS ORDERED: DOCUSATE SODIUM 100MG CAPSULE PO PRN (08:15)
[2025-07-02 08:54] VITALS: BP 143/93; PULSE 84; RESP 20; TEMP 36.7; O2SAT 94
[2025-07-02] MEDS ORDERED: DEXTROSE 50% WATER 50ML SYRINGE IV PRN (09:00)
[2025-07-02 09:42] LABS: PHOSPHORUS 3.1 mg/dL (2.5-4.9)
[2025-07-02 09:50] LABS: FOLIC ACID (FOLATE) SERUM > 20.00 ng/mL (>5.38)
[2025-07-02 09:51] LABS: VITAMIN B12 SERUM 661 pg/mL (211-911)
[2025-07-02] MEDS ORDERED: FERROUS SULFATE 325MG TABLET PO SCH (10:00)
[2025-07-02] MEDS ORDERED: LOSARTAN 25 MG TABLET PO SCH (10:00)
[2025-07-02] MEDS ORDERED: ATORVASTATIN CALCIUM 20MG TABLET PO SCH (10:00)
[2025-07-02] MEDS ORDERED: BLOOD SUGAR DIAGNOSTIC STRIP TEST SCH (13:00)
[2025-07-02] MEDS ORDERED: INSULIN LISPRO 100 UNITS/ML SUBCUT SCH (13:20)
== END 2025-07-02 09:15 | disposition short-term general hospital (02) ==
LOC: ER 02:06 → EDBEDREQ 08:23 → EDBEDREQTM 08:23 → ER 09:15 → CMPBEDREQ 09:37
DX: R55 Syncope and collapse (principal); E11.649 Type 2 diabetes mellitus with hypoglycemia without coma; E78.00 Pure hypercholesterolemia, unspecified; I10 Essential (primary) hypertension; Z79.899 Other long term (current) drug therapy; Z88.5 Allergy status to narcotic agent
CPT/HCPCS: 99285; 71045; 80076; 80048; 82607; 82746; 82962; 83036; 83540; 83550; 83690; 83735; 84100; 85025; 85044; 84484; 93005; 36415; A6449